=== PATIENT | male | born 1965 | race Caucasian/White ===

== ENCOUNTER 2020-11-23 10:28 | Day surgery (SDC) | payer BC ==
[2020-11-23] MEDS ORDERED: AFRIN NASAL MIST 15 ML BOT ONE ×2 (11:40→12:18)
[2020-11-23 12:16] LABS: SARS-CoV-2 NAA Rapid Test Not Detected (NotDetected)
[2020-11-23] MEDS ORDERED: Lidocaine 1% w/Epinephrine 1:100K 20 ML VIAL ONE (12:21)
[2020-11-23] MEDS ORDERED: Fentanyl 100 MCG/2 ML VIAL ONE (12:32)
[2020-11-23] MEDS ORDERED: Succinylcholine 200 MG/10 ml SYRINGE FS ONE (12:36)
[2020-11-23] MEDS ORDERED: Lidocaine 1% PF 5 ML VIAL ONE (12:36)
[2020-11-23] MEDS ORDERED: Glycopyrrolate 0.2 MG/ML 5 ML SYRINGE ONE (12:36)
[2020-11-23] MEDS ORDERED: Dexamethasone 20 MG/5 ML VIAL ONE (12:36)
[2020-11-23] MEDS ORDERED: Ondansetron PF 4 MG/2 ML Vial ONE (12:36)
[2020-11-23] MEDS ORDERED: PROPOFOL 200 MG/20 ML VIAL ONE (12:36)
[2020-11-23] MEDS ORDERED: Rocuronium Bromide 10 MG/ML (10ML VIAL) ONE (12:36)
[2020-11-23] MEDS ORDERED: EPINEPHrine 1 MG/ML AMP ONE (12:56)
== END 2020-11-23 16:10 | disposition home or self-care (01) ==
LOC: SDC 10:28
PROVIDERS: ATTEND Specialist
PROC: 8E09XBZ Computer Assisted Procedure of Head and Neck Region (ICD-10-PCS; principal; 2020-11-23)
PROC: 09BS8ZZ Excision of Right Frontal Sinus, Via Natural or Artificial Opening Endoscopic (ICD-10-PCS; principal; 2020-11-23)
PROC: 099W8ZZ Drainage of Right Sphenoid Sinus, Via Natural or Artificial Opening Endoscopic (ICD-10-PCS; principal; 2020-11-23)
PROC: 09BQ8ZZ Excision of Right Maxillary Sinus, Via Natural or Artificial Opening Endoscopic (ICD-10-PCS; principal; 2020-11-23)
PROC: 0J910ZZ Drainage of Face Subcutaneous Tissue and Fascia, Open Approach (ICD-10-PCS; principal; 2020-11-23)
PROC: 09TU8ZZ Resection of Right Ethmoid Sinus, Via Natural or Artificial Opening Endoscopic (ICD-10-PCS; principal; 2020-11-23)
DX: J33.8 Other polyp of sinus (principal); M86.8X8 Other osteomyelitis, other site; J32.4 Chronic pansinusitis; L02.01 Cutaneous abscess of face; J34.2 Deviated nasal septum; J34.3 Hypertrophy of nasal turbinates; Z20.822 Contact with and (suspected) exposure to COVID-19
CPT/HCPCS: 87070; 87076; 87205; 88184; 88304; C2625; J0171; J1100; J2405; J2704; J3010; U0002; U0005